=== PATIENT | male | born 1950 | race Hispanic/Latino ===

== ENCOUNTER 2020-01-25 08:53 | Day surgery (SDC) | payer MEDICARE ==
[2020-01-25 10:12] LABS: Basophils % (Auto) 0.2 % (0.0-1.8); Eosinophils # (Auto) 0.2 K/mm3 (0.0-0.4); Eosinophils % (Auto) 3.3 % (0.0-4.3); Hematocrit 48.5 % (35.5-45.6); Hemoglobin 16.3 gm/dl (11.8-15.2); Lymphocytes # (Auto) 1.7 K/mm3 (1.2-5.4); Lymphocytes % (Auto) 27.8 % (13.4-35.0); Mean Corpuscular HGB Conc 34 % (32-34); Mean Corpuscular Volume 95 fl (84-94); Monocytes # (Auto) 0.5 K/mm3 (0.0-0.8); Platelet Count 180 K/mm3 (140-440); Red Cell Distribution Width 13.4 % (13.2-15.2)
[2020-01-25] MEDS: SODIUM CHLORIDE 0.9% 500 ML 500 ML IV SCH ×2 (10:19→11:24)
[2020-01-25 10:23] LABS: INR 1.04 (0.87-1.13)
[2020-01-25 10:28] LABS: BUN/Creatinine Ratio 23; Blood Urea Nitrogen 23 mg/dL (9-20); Calcium 9.7 mg/dL (8.4-10.2); Hemolysis Index 5
[2020-01-25] MEDS ORDERED: HEPARIN 10,000 UNITS/10 ML VIAL ONE (11:01)
[2020-01-25] MEDS ORDERED: LIDOCAINE (2%) 20 MG/1 ML VIAL 20 ML MDV INFILTRATI ONE (11:01)
[2020-01-25] MEDS ORDERED: VERAPAMIL 5 MG/2 ML INJ ONE (11:01)
[2020-01-25] MEDS ORDERED: HEPARIN/NS 5000 UNIT/500ML 1,000 ML IR ONE (11:01)
[2020-01-25] MEDS ORDERED: NITROGLYCERIN SYRINGE 3 ML ONE (11:01)
[2020-01-25] MEDS ORDERED: MIDAZOLAM 2 MG/2 ML INJ ONE (11:02)
[2020-01-25] MEDS ORDERED: fentaNYL 100 MCG/2 ML INJ ONE (11:02)
--- NOTE | 2020-01-25 13:33 | Cardiac Catherization Report ---
REFERRING PHYSICIAN: Byron Ritchie MD INDICATION FOR PROCEDURE: The patient is a pleasant 69-year-old gentleman with recurrent chest pain, multiple risk factors, referred for left heart catheterization. Risks, benefits, potential alternatives explained at length prior to obtaining informed consent. PROCEDURE IN DETAIL: The patient was brought to the catheterization lab in a postabsorptive state, prepped and draped in sterile fashion. Cedrick's test in right hand was normal. A 2 mL of 2% lidocaine used to anesthetize the right wrist. A standard 6-Namibian hydrophilic sheath used to cannulate the right radial artery via modified Seldinger technique. All exchanges performed to exchange a J-tip guidewire. JL3.5 catheter was used to engage the left main. No dampening or ventricularization. Cineangiography performed in multiple projections. JR4 catheter was used to cross the aortic valve under fluoroscopic guidance. Left ventriculography performed in 30 CHAMBERLAIN and 30 TAM projections via hand injections, catheter flushed. Manual pullback performed with continuous pressure monitoring. Catheter used to engage the right coronary. No dampening or ventricularization. Cineangiography performed in all projections. Given recurrent chest pain, hypertension and unremarkable coronaries, we decided to proceed with root aortography with a power injector 6-Namibian pigtail in the TAM projection. Next, catheter removed from the body of wire, sheath removed. Manual pressure used to achieve hemostasis. There were no immediate complications identified. I directly supervised the administration of moderate sedation from 11:40 a.m. to 12:05 p.m. No immediate complications. DATA: Aortic pressure is 120/70, LV pressure is 120, LVP of 20 mmHg. Left ventriculography reveals normal systolic performance with estimated ejection fraction of 55-60%. No evidence of aortic stenosis. Root aortogram reveals normal contour, no evidence of dissection, penetrating aortic ulcer, or aortic insufficiency, normal great vessel anatomy. Left main without significant disease, bifurcates left anterior descending and left circumflex. Left circumflex, moderate sized vessel, courses AV groove. No significant disease. It is a codominant system. LAD is a moderate sized vessel, courses anterior intergroove, wraps around the apex. Mild bridging in the mid LAD, but no significant disease or diastolic collapse identified. AAMIR 3 flow throughout. Right coronary is a moderate sized vessel, courses AV groove, distally bifurcates in the posterior descending and posterolateral branches. No discrete stenosis noted. CONCLUSIONS: 1. No angiographic evidence of significant epicardial coronary disease in this codominant system, mild mid LAD bridges noted without evidence of diastolic collapse. 2. Normal left ventricular systolic performance with normal systolic performance. Estimated ejection fraction of 55-60%. 3. No evidence of aortic stenosis. 4. Normal LVEDP. 5. Normal root aortography without evidence of dissection, penetrating aortic ulcer or aortic insufficiency. At this point, recommend aggressive primary and secondary prevention measures, standard radial care. Results of procedure explained in length with the patient and family. All questions and concerns were addressed. Follow up with us in the office. JOB# [id number] JEANNE/NTS
[2020-01-25 14:32] VITALS: BP 139/47
== END 2020-01-25 08:54 | disposition home or self-care (01) ==
LOC: CATHLABREC 08:53
PROVIDERS: ATTEND Internal Medicine
DX: R07.89 Other chest pain (principal); R94.39 Abnormal result of other cardiovascular function study; G40.909 Epilepsy, unspecified, not intractable, without status epilepticus; G47.30 Sleep apnea, unspecified; F32.9 Major depressive disorder, single episode, unspecified; F41.9 Anxiety disorder, unspecified; Z79.82 Long term (current) use of aspirin; Z98.49 Cataract extraction status, unspecified eye; Z98.890 Other specified postprocedural states; Z82.49 Family history of ischemic heart disease and other diseases of the circulatory system; Z88.8 Allergy status to other drugs, medicaments and biological substances
CPT/HCPCS: 36415; 80048; 85025; 85610; 85730; 93005; 93010; 93458; 93567; 99156; 99157; C1894; J1644; J2250; J3010; J7040; Q9967